=== PATIENT | female | born 2000 | race Caucasian/White ===

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

== ENCOUNTER → 2021-06-15 | Outpatient (CLI) | payer BC ==
[2021-06-15 10:24] VITALS: BP 117/77; PULSE 72; RESP 12; TEMP 98.2
--- NOTE | 2021-06-15 11:31 | P.HPOB ---
History of Present Illness H&P Date: 06/15/21 Chief Complaint: The patient is here for routine gynecologic care. This is a 20-year-old G0 with an LMP of 06/01/2021. The patient is here to establish with this office. She has never been seen for gynecologic care. She presents today with her mother. The patient states she has never been sexually active and does not plan on becoming sexually active in the immediate future. Menarche was at age 14. Menstrual periods have been regular since then. Since about age 17, she states the menstrual periods have become more painful especially during the last 2 days of her menses. The menstrual discomfort is in the mid pelvic area and not on any particular side. Menstrual periods typically last 4 days with normal flow. She typically takes [id number] ibuprofen 200 mg, 2 or 3 tablets, 3 times a day as needed. She says she has adequate relief with [id number] ibuprofen. Last year, she presented to the emergency room because of some pain and at that time she was told she had a kidney stone and an ovarian cyst. The pain resolved. Review of Systems The patient states she intentionally lost about 20 pounds since March with diet and exercise. She denies respiratory, cardiac, or GI problems. Past Medical History Past Medical History: No Reported History Additional Past Medical History / Comment(s): Kidney stones. 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 History of Any Multi-Drug Resistant Organisms: None Reported Additional Past Surgical History / Comment(s): [place] teeth removed in the past. Past Anesthesia/Blood Transfusion Reactions: No Reported Reaction Past Psychological History: No Psychological Hx Reported Smoking Status: Never smoker Past Alcohol Use History: None Reported Past Drug Use History: None Reported Additional History: The patient is single and is not seeing anybody at this time. 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 - Past Family History Mother Family Medical History: No Reported History Father Family Medical History: No Reported History Additional Family Medical History / Comment(s): Paternal grandmother had breast cancer. Paternal aunt had PCOS. Medications and Allergies Home Medications Medication Instructions Recorded Confirmed Type Ibuprofen 200 mg PO Q8H PRN 06/15/21 06/15/21 History Allergies Allergy/AdvReac Type Severity Reaction Status Date / Time No Known Allergies Allergy Verified 06/17/20 09:42 Exam Vital Signs Temp Pulse Resp BP 06/15/21 10:14 98.2 F 72 12 117/77 Height 5 feet 5 inches, weight 215 pounds, BMI 36 This is a well-developed well-nourished white female who is alert and oriented times 3 in no acute distress. HEENT: Within normal limits. NECK: Supple without mass or thyromegaly. CHEST AND LUNGS: Clear to auscultation. HEART: Regular rate and rhythm. BREASTS: Deferred. BACK: Negative for CVA tenderness. ABDOMEN: Soft, nontender, without palpable masses. PELVIC EXAM: Deferred. RECTAL EXAM: Deferred. EXTREMITIES: Nontender. IMPRESSION: 1. 20-year-old virginal female with normal general examination. Pelvic and breast exams were deferred. 2. Mild dysmenorrhea improved with ziia-fiw-vzmjvdh ibuprofen. PLAN: 1. Pap smear was deferred until age 22. 2. Pelvic exam will be deferred until age 22, or if sexually active, or if indicated due to symptoms. 3. Self breast awareness was discussed with the patient. We have also discussed symptoms associated with inflammatory breast cancer. 4. STD prevention was discussed. I have stressed the importance of limiting sexual partners during her lifetime. Have also recommended that if she is sexually active that she use condoms. She has no plan on becoming sexually active in the immediate future. 5. Osteoporosis prevention was discussed. I have stressed the importance of adequate calcium, vitamin D and regular exercise. Recommended amounts of calcium and vitamin D were also discussed. 6. We have had long discussion regarding her painful menstrual periods. We have discussed options including NSAID medications and oral contraception to help with the menstrual periods. She thinks she is doing well with NSAID treatment only. She would like a prescription NSAID which would allow her to take fewer pills. The prescription for ibuprofen 600 mg by mouth every 6 hours when necessary for menstrual pain will be sent to [facility] in [facility]. She was instructed to call or make an appointment if she is having worsening menstrual pains or problems. 7. She will call or make an appointment if she is considering sexual activity so we can further discuss control options, if needed. 8. We have discussed the HPV vaccination. We have discussed benefits and limitations of the vaccination. I have recommended that she look into having this vaccination which can be done through the health department, [facility], or her PCP. 9. She has completed her Covid vaccination series. 10. She will return at age 22, or as needed. She will also return if she is having worsening menstrual periods symptoms or if she is sexually active or considering sexual activity.
== END ==
LOC: WWCWWP 10:03
PROVIDERS: ATTEND Obstetrics & Gynecology
DX: N94.6 Dysmenorrhea, unspecified (principal)

== ENCOUNTER 2023-03-20 10:20 | Emergency (ER) | payer BC ==
[2023-03-20 10:25] VITALS: TEMP 98.1
[2023-03-20] MEDS ORDERED: FAMOTIDINE 20 MG/2 ML VIAL IV STA (10:35)
[2023-03-20] MEDS ORDERED: MAG HYDROX/AL HYDROX/SIMETH 30 ML, HYOSCYAMINE ELIXIR 10 ML, LIDOCAINE 2% GLYDO JELLY 1... PO STA ×3 (10:35)
--- NOTE | 2023-03-20 10:42 | ED ---
Chest Pain HPI - General Chief Complaint: Chest Pain Stated Complaint: Chest pain Time Seen by Provider: 03/20/23 10:26 Source: patient, RN notes reviewed Mode of arrival: ambulatory Limitations: no limitations - History of Present Illness Initial Comments: This is a 22-year-old female who presents to the emergency department for chest pain. Describes this as a burning sensation in the chest that started about 3 hours ago, around 7 AM. She tried taking Mylanta and Tums with no relief. She's had intermittent episodes of acid reflux before, however it has never been this severe. She took her Zoloft this morning with a couple of sips of water, but has otherwise not had anything to eat or drink today. Denies any shortness of breath, nausea, vomiting, or pain in the abdomen itself. Denies any fevers, chills, cough, dyspnea, palpitations, abdominal pain, nausea, vomiting, diarrhea, back pain, or headaches. - Related Data Home Medications Medication Instructions Recorded Confirmed Sertraline [Zoloft] 50 mg PO DAILY 03/20/23 03/20/23 Previous Rx's Medication Instructions Recorded Ibuprofen 600 mg PO Q6H PRN #36 tab 06/15/21 Famotidine 20 mg PO BID 7 Days #14 tablet 03/20/23 Sucralfate [Carafate] 1 gm PO BID 7 Days #14 tablet 03/20/23 Allergies Allergy/AdvReac Type Severity Reaction Status Date / Time No Known Allergies Allergy Verified 03/20/23 11:32 Review of Systems ROS Statement: Those systems with pertinent positive or pertinent negative responses have been documented in the HPI. ROS Other: All systems not noted in ROS Statement are negative. Past Medical History Past Medical History: No Reported History Additional Past Medical History / Comment(s): Kidney stones. 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 History of Any Multi-Drug Resistant Organisms: None Reported Past Surgical History: No Surgical Hx Reported Additional Past Surgical History / Comment(s): [place] teeth removed in the past. Past Anesthesia/Blood Transfusion Reactions: No Reported Reaction Past Psychological History: No Psychological Hx Reported Smoking Status: Never smoker Past Alcohol Use History: None Reported Past Drug Use History: None Reported - Past Family History Mother Family Medical History: No Reported History Father Family Medical History: No Reported History Additional Family Medical History / Comment(s): Paternal grandmother had breast cancer. Paternal aunt had PCOS. General Exam Limitations: no limitations General appearance: alert, in no apparent distress Head exam: Present: atraumatic, normocephalic, normal inspection Respiratory exam: Present: normal lung sounds bilaterally. Absent: respiratory distress, wheezes, rales, rhonchi, stridor, chest wall tenderness Cardiovascular Exam: Present: regular rate, normal rhythm, normal heart sounds. Absent: systolic murmur, diastolic murmur, rubs, gallop, clicks GI/Abdominal exam: Present: soft, normal bowel sounds. Absent: distended, tenderness, guarding, rebound, rigid Neurological exam: Present: alert, oriented X3, CN II-XII intact Psychiatric exam: Present: normal affect, normal mood Skin exam: Present: warm, dry, intact, normal color. Absent: rash Course Vital Signs 03/20/23 03/20/23 03/20/23 10:21 11:48 13:40 Temperature 98.1 F Pulse Rate 76 59 L 75 Respiratory 18 20 20 Rate Blood Pressure 145/83 139/85 140/60 O2 Sat by Pulse 98 98 998 H Oximetry Chest Pain MDM - MDM This is a 22-year-old female who presents to the emergency department for chest pain. Was pt. sent in by a medical professional or institution? @ -No Did you speak to anyone other than the patient for history? @ -No Did you review nursing and triage notes? @ -Yes, and I agree, it is accurate with regards to the patient's symptoms. Were old charts reviewed? @ -No Differential Diagnosis? @ -Differential Chest Pain: Stable Angina, Unstable Angina, STEMI, NSTEMI Aortic Dissection, Pneumothorax, Musculoskeletal, Esophageal Spasm GERD, Cholecystitis, Pancreatitis, Zoster, this is not meant to be an all-inclusive list. EKG interpreted by me (3pts min.)? @ -EKG interpreted by me demonstrating the following: Sinus rhythm. Ventricular rate 73 beats per minute, AK interval 136 ms, QRS duration 98 ms, QTC 381 ms. X-rays interpreted by me (1pt min.)? @ -Chest x-ray obtained, my interpretation identifies no localized consolidations or infiltrates. CT interpreted by me (1pt min.)? @ -Not obtained U/S interpreted by me (1pt. min.)? @ -Not obtained What testing was considered but not performed? (CT, X-rays, U/S, labs)? Why? @ -None What meds were considered but not given? Why? @ -None Did you discuss the management of the patient with other professionals? @ -No Did you reconcile home meds? @ -No Was smoking cessation discussed for >3mins.? @ -No Was critical care preformed (if so, how long)? @ -No Were there social determinants of health that impacted care today? How? (Homelessness, low income, unemployed, alcoholism, drug addiction, transportation, low edu. Level, literacy, decrease access to med. care, penitentiary, rehab)? @ -No Was there de-escalation of care discussed even if they declined? (Discuss DNR or withdrawal of care, Hospice)? @ -No What co-morbidities impacted this encounter? (DM, HTN, Smoking, COPD, CAD, Cancer, CVA, Hep., AIDS, mental health diagnosis, sleep apnea, morbid obesity)? @ -Morbid obesity Was patient admitted / discharged? @ -Discharged. Lab work obtained and found to be nonactionable. Chest x-ray reveals no acute process. Patient initially treated with a GI cocktail and Pepcid. States that this offered only minimal relief to her symptoms. She was subsequently given pantoprazole and sucralfate. She then started to have much more consistent improvement and while the pain was still present, she felt like it was much more manageable. Symptoms most consistent with a gastritis or peptic ulcer. Prescription for famotidine and sucralfate provided with dosing instructions reviewed. She was also given information for follow-up with GI for further evaluation. Undiagnosed new problem with uncertain prognosis? @ -None Drug Therapy requiring intensive monitoring for toxicity (Heparin, Nitro, Insulin, Cardizem)? @ -None Were any procedures done? @ -None Diagnosis/symptom? @ -Gastritis Acute, or Chronic, or Acute on Chronic? @ -Acute Uncomplicated (without systemic symptoms) or Complicated (systemic symptoms)? @ -Uncomplicated Side effects of treatment? @ -None Exacerbation, Progression, or Severe Exacerbation] @ -Not applicable Poses a threat to life or bodily function? @ -No Return precautions reviewed in depth, the patient is instructed to return to the emergency department with any new, worsening, or concerning symptoms. Patient verbalized understanding. This case was discussed in detail with the attending ED physician, Dr. Page. Presentation, findings, and treatment plan discussed in detail as well. Disposition Clinical Impression: Gastritis Disposition: HOME SELF-CARE Instructions (If sedation given, give patient instructions): Gastritis (ED) Additional Instructions: Return to the emergency department with any new, worsening, or concerning symptoms. Take the famotidine and Carafate twice daily for 7 days. Contact GI as listed below for a follow-up appointment and further evaluation of your ongoing symptoms. Follow up with your primary care provider in 1-2 days. Prescriptions: Sucralfate [Carafate] 1 gm PO BID 7 Days #14 tablet Famotidine 20 mg PO BID 7 Days #14 tablet Is patient prescribed a controlled substance at d/c from ED?: No Referrals: Akin Payne DO [Primary Care Provider] - 1-2 days Carly Nguyen MD [STAFF PHYSICIAN] - 1-2 days
[2023-03-20 10:59] LABS: Basophils % (A) 0 %; Eosinophils # (A) 0.1 k/uL (0-0.7); Eosinophils % (A) 2 %; HCT 39.4 % (34.0-46.0); HGB 12.8 gm/dL (11.4-16.0); Lymphocytes # (A) 2.6 k/uL (1.0-4.8); Lymphocytes % (A) 30 %; MCH 26.1 pg (25.0-35.0); MCHC 32.5 g/dL (31.0-37.0); MCV 80.2 fL (80.0-100.0); Mean Platelet Volume 7.8; Monocytes # (A) 0.4 k/uL (0-1.0); Monocytes % (A) 5 %; Neutrophils # (A) 5.6 k/uL (1.3-7.7); Neutrophils % (A) 62 %; Platelet Count 311 k/uL (150-450); RBC 4.91 m/uL (3.80-5.40); RDW 13.3 % (11.5-15.5); WBC 8.9 k/uL (3.8-10.6)
[2023-03-20 11:10] LABS: ALT 20 U/L (4-34); AST 21 U/L (14-36); African American GFR (CKD) >90 (>60 ml/min/1.73 sqM); Albumin 4.3 g/dL (3.5-5.0); Alkaline Phosphatase 85 U/L (38-126); Amylase 58 U/L (30-110); Anion Gap 9 mmol/L; Blood Urea Nitrogen 13 mg/dL (7-17); Calcium 9.6 mg/dL (8.4-10.2); Carbon Dioxide 22 mmol/L (22-30); Chloride 106 mmol/L (98-107); Glucose 107 mg/dL (74-99); Lipase 100 U/L (23-300); Non-African American GFR(CKD) >90 (>60 ml/min/1.73 sqM); Potassium 4.4 mmol/L (3.5-5.1); Sodium 137 mmol/L (137-145); Total Bilirubin 0.5 mg/dL (0.2-1.3); Total Protein 7.5 g/dL (6.3-8.2)
[2023-03-20] MEDS ORDERED: PANTOPRAZOLE 40 MG/10 ML VIAL IVP STA (11:19)
[2023-03-20] MEDS ORDERED: SUCRALFATE 1 GM TAB PO STA (11:19)
--- NOTE | 2023-03-20 11:24 | XR ---
EXAMINATION TYPE: XR chest 2V DATE OF EXAM: 03/20/2023 COMPARISON: NONE TECHNIQUE: PA and lateral views submitted. HISTORY: Chest pain FINDINGS: The lungs are clear and there is no pneumothorax, pleural effusion, or focal pneumonia. Heart size normal and no overt failure. Osseous structures intact. IMPRESSION: 1. No acute process.
[2023-03-20 11:49] VITALS: RESP 20
[2023-03-20 13:44] VITALS: BP 140/60; PULSE 75
== END 2023-03-20 13:44 | disposition home or self-care (01) ==
LOC: EC 10:20
DX: K29.70 Gastritis, unspecified, without bleeding (principal)
CPT/HCPCS: 36415; 93005; 80053; 82150; 83605; 83690; 84484; 85025; 71046; 99285; 96374; 96375; C9113

== ENCOUNTER 2023-06-10 10:16 | Emergency (ER) | payer BC, OTHER ==
[2023-06-10 10:23] VITALS: RESP 18
[2023-06-10] MEDS ORDERED: SODIUM CHLORIDE 0.9% 1,000 ML IV STA (10:33)
[2023-06-10] MEDS ORDERED: KETOROLAC 15 MG/ML 1 ML VIAL IVP STA ×2 (10:33→12:57)
[2023-06-10] MEDS ORDERED: ONDANSETRON 4 MG/2 ML VIAL IVP STA (10:33)
--- NOTE | 2023-06-10 10:49 | ED ---
Abdominal Pain HPI - General Chief Complaint: Abdominal Pain Stated Complaint: Abd Pain Time Seen by Provider: 06/10/23 10:19 Source: patient, RN notes reviewed Mode of arrival: wheelchair Limitations: no limitations - History of Present Illness Initial Comments: This is a 22-year-old female who presents to the emergency department for left- sided abdominal pain. 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 This is not radiating to the back. Reports a history of ovarian cysts and kidney stones, and states that it feels similar to both of them. However, believes that ovarian cysts typically occur lower down in her abdomen/pelvis and this one is closer to that of prior kidney stones. She has nausea from the pain but no vomiting. Denies any urinary complaints. Denies any fevers, chills, sore throat, cough, dyspnea, chest pain, palpitations, vomiting, diarrhea, back pain, or headaches. MD Complaint: abdominal pain - Related Data Home Medications Medication Instructions Recorded Confirmed Sertraline [Zoloft] 50 mg PO DAILY 03/20/23 03/20/23 Previous Rx's Medication Instructions Recorded Ibuprofen 600 mg PO Q6H PRN #36 tab 06/15/21 Famotidine 20 mg PO BID 7 Days #14 tablet 03/20/23 Sucralfate [Carafate] 1 gm PO BID 7 Days #14 tablet 03/20/23 HYDROcodone/APAP 7.5-325MG [Campbell 1 tab PO Q6HR PRN 3 Days #12 tab 06/10/23 7.5-325] Ketorolac [Toradol] 10 mg PO Q6HR PRN #15 tab 06/10/23 Ondansetron Odt [Zofran Odt] 4 mg PO Q8HR PRN #15 tab 06/10/23 Tamsulosin [Flomax] 0.4 mg PO DAILY 5 Days #5 cap 06/10/23 Allergies Allergy/AdvReac Type Severity Reaction Status Date / Time No Known Allergies Allergy Verified 06/10/23 10:19 Review of Systems ROS Statement: Those systems with pertinent positive or pertinent negative responses have been documented in the HPI. ROS Other: All systems not noted in ROS Statement are negative. Past Medical History Past Medical History: No Reported History Additional Past Medical History / Comment(s): Kidney stones. Past [employer] history: She has never been sexually active. History of Any Multi-Drug Resistant Organisms: None Reported Past Surgical History: No Surgical Hx Reported Additional Past Surgical History / Comment(s): [place] teeth removed in the past. Past Anesthesia/Blood Transfusion Reactions: No Reported Reaction Past Psychological History: No Psychological Hx Reported Smoking Status: Never smoker Past Alcohol Use History: None Reported Past Drug Use History: None Reported - Past Family History Mother Family Medical History: No Reported History Father Family Medical History: No Reported History Additional Family Medical History / Comment(s): Paternal grandmother had breast cancer. Paternal aunt had PCOS. General Exam Limitations: no limitations General appearance: alert, in no apparent distress Head exam: Present: atraumatic, normocephalic, normal inspection Respiratory exam: Present: normal lung sounds bilaterally. Absent: respiratory distress, wheezes, rales, rhonchi, stridor Cardiovascular Exam: Present: regular rate, normal rhythm, normal heart sounds. Absent: systolic murmur, diastolic murmur, rubs, gallop, clicks GI/Abdominal exam: Present: soft, tenderness (left mid abdomen), normal bowel sounds. Absent: distended Back exam: Absent: CVA tenderness (R), CVA tenderness (L) Neurological exam: Present: alert, oriented X3, CN II-XII intact Psychiatric exam: Present: normal affect, normal mood Skin exam: Present: warm, dry, intact, normal color. Absent: rash Course Vital Signs 06/10/23 06/10/23 10:17 13:23 Temperature 98 F 97.9 F Pulse Rate 102 H 55 L Respiratory 18 18 Rate Blood Pressure 146/81 123/87 O2 Sat by Pulse 98 99 Oximetry Medical Decision Making - Medical Decision Making This is a 22-year-old female who presents to the emergency department for abdominal pain. Was pt. sent in by a medical professional or institution? @ -No Did you speak to anyone other than the patient for history? @ -No Did you review nursing and triage notes? @ -Yes, and I agree, it is accurate with regards to the patient's symptoms. Were old charts reviewed? @ -No Differential Diagnosis? @ -Differential Abdominal Pain Women: Appendicitis, Cholecystitis, diverticulosis, ischemic bowel, pancreatitis, hepatitis, UTI, gastroenteritis, AAA, incarcerated hernia, bowel obstruction, constipation, inflammatory bowel, hepatitis, peptic ulcer disease, splenic infarction, perforated viscus, vulvitis, ovarian torsion, PID, kidney stone, placenta abruption, this is not meant to be an all-inclusive list EKG interpreted by me (3pts min.)? @ -Not obtained X-rays interpreted by me (1pt min.)? @ -Not obtained CT interpreted by me (1pt min.)? @ -Computed tomography scan of the abdomen and pelvis obtained. My interpretation identifies a left ureteral calculus. U/S interpreted by me (1pt. min.)? @ -Not obtained What testing was considered but not performed? (CT, X-rays, U/S, labs)? Why? @ -None What meds were considered but not given? Why? @ -None Did you discuss the management of the patient with other professionals? @ -No Did you reconcile home meds? @ -No Was smoking cessation discussed for >3mins.? @ -No Was critical care preformed (if so, how long)? @ -No Were there social determinants of health that impacted care today? How? (Homelessness, low income, unemployed, alcoholism, drug addiction, transportation, low edu. Level, literacy, decrease access to med. care, prison, rehab)? @ -No Was there de-escalation of care discussed even if they declined? (Discuss DNR or withdrawal of care, Hospice)? @ -No What co-morbidities impacted this encounter? (DM, HTN, Smoking, COPD, CAD, Cancer, CVA, Hep., AIDS, mental health diagnosis, sleep apnea, morbid obesity)? @ -None Was patient admitted / discharged? @ -Discharged. Lab work obtained and found to be nonactionable. Urinalysis did have large amount of blood in it, and we proceeded with a computed cipriano ography scan of the abdomen and pelvis. This revealed a 3 mm calculus in the left UVJ. Her symptoms were well controlled in the emergency department. She was given prescriptions for Toradol, Campbell, Flomax, and Zofran with dosing instructions reviewed. Patient is instructed to take the Toradol with Tylenol if needed and avoid any other hrop-[id number] anti-inflammatories such as ibuprofen with the Toradol. She was sent home with a urine strainer and given information to follow up with urology. Undiagnosed new problem with uncertain prognosis? @ -None Drug Therapy requiring intensive monitoring for toxicity (Heparin, Nitro, Insulin, Cardizem)? @ -None Were any procedures done? @ -None Diagnosis/symptom? @ -Left ureteral calculus Acute, or Chronic, or Acute on Chronic? @ -Acute Uncomplicated (without systemic symptoms) or Complicated (systemic symptoms)? @ -Uncomplicated Side effects of treatment? @ -None Exacerbation, Progression, or Severe Exacerbation] @ -Not applicable Poses a threat to life or bodily function? @ -No Return precautions reviewed in depth, the patient is instructed to return to the emergency department with any new, worsening, or concerning symptoms. Patient verbalized understanding. This case was discussed in detail with the attending ED physician, Dr. Momin. Presentation, findings, and treatment plan discussed in detail as well. - Lab Data Result diagrams: 06/10/23 10:46 06/10/23 10:46 Lab Results 06/10/23 06/10/23 06/10/23 Range/Units 10:46 10:46 10:46 WBC 9.0 (3.8-10.6) k/uL RBC 4.71 (3.80-5.40) m/uL Hgb 12.3 (11.4-16.0) gm/dL Hct 37.7 (34.0-46.0) % MCV 80.1 (80.0-100.0) fL MCH 26.2 (25.0-35.0) pg MCHC 32.7 (31.0-37.0) g/dL RDW 13.5 (11.5-15.5) % Plt Count 346 (150-450) k/uL MPV 7.6 Neutrophils % 67 % Lymphocytes % 26 % Monocytes % 5 % Eosinophils % 1 % Basophils % 0 % Neutrophils # 6.0 (1.3-7.7) k/uL Lymphocytes # 2.3 (1.0-4.8) k/uL Monocytes # 0.4 (0-1.0) k/uL Eosinophils # 0.1 (0-0.7) k/uL Basophils # 0.0 (0-0.2) k/uL Sodium (137-145) mmol/L Potassium (3.5-5.1) mmol/L Chloride (98-107) mmol/L Carbon Dioxide (22-30) mmol/L Anion Gap mmol/L BUN (7-17) mg/dL Creatinine (0.52-1.04) mg/dL Est GFR (CKD-EPI)AfAm (>60 ml/min/1.73 sqM) Est GFR (CKD-EPI)NonAf (>60 ml/min/1.73 sqM) Glucose (74-99) mg/dL Plasma Lactic Acid Wilder (0.7-2.0) mmol/L Calcium (8.4-10.2) mg/dL Total Bilirubin (0.2-1.3) mg/dL AST (14-36) U/L ALT (4-34) U/L Alkaline Phosphatase (38-126) U/L Total Protein (6.3-8.2) g/dL Albumin (3.5-5.0) g/dL Amylase (30-110) U/L Lipase (23-300) U/L Urine Color Yellow Urine Appearance Cloudy H (Clear) Urine pH 5.5 (5.0-8.0) Ur Specific [place] 1.025 (1.001-1.035) Urine Protein Trace H (Negative) Urine Glucose (UA) Negative (Negative) Urine Ketones 1+ H (Negative) Urine Blood Large H (Negative) Urine Nitrite Negative (Negative) Urine Bilirubin Negative (Negative) Urine Urobilinogen <2.0 (<2.0) mg/dL Ur Leukocyte Esterase Trace H (Negative) Urine RBC 159 H (0-5) /hpf Urine WBC 4 (0-5) /hpf Ur Squamous Epith Cells 8 H (0-4) /hpf Urine Bacteria Occasional H (None) /hpf Urine Mucus Few H (None) /hpf Urine HCG, Qual Not Detected (Not Detectd) 06/10/23 06/10/23 Range/Units 10:46 10:46 WBC (3.8-10.6) k/uL RBC (3.80-5.40) m/uL Hgb (11.4-16.0) gm/dL Hct (34.0-46.0) % MCV (80.0-100.0) fL MCH (25.0-35.0) pg MCHC (31.0-37.0) g/dL RDW (11.5-15.5) % Plt Count (150-450) k/uL MPV Neutrophils % % Lymphocytes % % Monocytes % % Eosinophils % % Basophils % % Neutrophils # (1.3-7.7) k/uL Lymphocytes # (1.0-4.8) k/uL Monocytes # (0-1.0) k/uL Eosinophils # (0-0.7) k/uL Basophils # (0-0.2) k/uL Sodium 140 (137-145) mmol/L Potassium 4.1 (3.5-5.1) mmol/L Chloride 105 (98-107) mmol/L Carbon Dioxide 23 (22-30) mmol/L Anion Gap 12 mmol/L BUN 14 (7-17) mg/dL Creatinine 0.75 (0.52-1.04) mg/dL Est GFR (CKD-EPI)AfAm >90 (>60 ml/min/1.73 sqM) Est GFR (CKD-EPI)NonAf >90 (>60 ml/min/1.73 sqM) Glucose 104 H (74-99) mg/dL Plasma Lactic Acid Wilder 1.3 (0.7-2.0) mmol/L Calcium 9.9 (8.4-10.2) mg/dL Total Bilirubin 0.5 (0.2-1.3) mg/dL AST 23 (14-36) U/L ALT 23 (4-34) U/L Alkaline Phosphatase 90 (38-126) U/L Total Protein 7.8 (6.3-8.2) g/dL Albumin 4.6 (3.5-5.0) g/dL Amylase 57 (30-110) U/L Lipase 82 (23-300) U/L Urine Color Urine Appearance (Clear) Urine pH (5.0-8.0) Ur Specific [place] (1.001-1.035) Urine Protein (Negative) Urine Glucose (UA) (Negative) Urine Ketones (Negative) Urine Blood (Negative) Urine Nitrite (Negative) Urine Bilirubin (Negative) Urine Urobilinogen (<2.0) mg/dL Ur Leukocyte Esterase (Negative) Urine RBC (0-5) /hpf Urine WBC (0-5) /hpf Ur Squamous Epith Cells (0-4) /hpf Urine Bacteria (None) /hpf Urine Mucus (None) /hpf Urine HCG, Qual (Not Detectd) - Radiology Data Radiology results: report reviewed, image reviewed Disposition Clinical Impression: Left ureteral calculus Disposition: HOME SELF-CARE Instructions (If sedation given, give patient instructions): Kidney Stones (ED), Renal Colic (ED), How to Strain Your Urine (ED), Ureteral Stones (ED) Additional Instructions: Return to the emergency department with any new, worsening, or concerning symptoms. Take the Toradol with Tylenol as needed for pain relief. If you choose to take the Toradol, do not take any other anti-inflammatories such as ibuprofen, take one of the other. Take the Flomax daily for 5 days, or until you pass the kidney stone. You can take the Zofran up to every 8 hours as needed for nausea and vomiting. Contact urology as listed below for a follow up appointment and reevaluation of ongoing symptoms. Follow up with your primary care provider in 1-2 days. Prescriptions: Tamsulosin [Flomax] 0.4 mg PO DAILY 5 Days #5 cap HYDROcodone/APAP 7.5-325MG [Campbell 7.5-325] 1 tab PO Q6HR PRN 3 Days #12 tab PRN Reason: Pain Ketorolac [Toradol] 10 mg PO Q6HR PRN #15 tab PRN Reason: Pain Ondansetron Odt [Zofran Odt] 4 mg PO Q8HR PRN #15 tab PRN Reason: Nausea And Vomiting Is patient prescribed a controlled substance at d/c from ED?: Yes When asked, does pt state using other controlled substances?: No If prescribed controlled substance>3 days was MAPS reviewed?: Prescribed <3 Days Referrals: Akin Payne DO [Primary Care Provider] - 1-2 days Franko Arroyo MD [STAFF PHYSICIAN] - 1-2 days
[2023-06-10] MEDS ORDERED: MORPHINE SULFATE 4 MG/ML SYRINGE IVP STA (11:16)
[2023-06-10 11:17] LABS: Basophils % (A) 0 %; Eosinophils # (A) 0.1 k/uL (0-0.7); Eosinophils % (A) 1 %; HCT 37.7 % (34.0-46.0); HGB 12.3 gm/dL (11.4-16.0); Lymphocytes # (A) 2.3 k/uL (1.0-4.8); Lymphocytes % (A) 26 %; MCH 26.2 pg (25.0-35.0); MCHC 32.7 g/dL (31.0-37.0); MCV 80.1 fL (80.0-100.0); Mean Platelet Volume 7.6; Monocytes # (A) 0.4 k/uL (0-1.0); Monocytes % (A) 5 %; Neutrophils % (A) 67 %; Platelet Count 346 k/uL (150-450); RBC 4.71 m/uL (3.80-5.40); RDW 13.5 % (11.5-15.5)
[2023-06-10 11:39] LABS: ALT 23 U/L (4-34); AST 23 U/L (14-36); African American GFR (CKD) >90 (>60 ml/min/1.73 sqM); Albumin 4.6 g/dL (3.5-5.0); Alkaline Phosphatase 90 U/L (38-126); Amylase 57 U/L (30-110); Anion Gap 12 mmol/L; Blood Urea Nitrogen 14 mg/dL (7-17); Calcium 9.9 mg/dL (8.4-10.2); Carbon Dioxide 23 mmol/L (22-30); Chloride 105 mmol/L (98-107); Glucose 104 mg/dL (74-99); Lipase 82 U/L (23-300); Non-African American GFR(CKD) >90 (>60 ml/min/1.73 sqM); Potassium 4.1 mmol/L (3.5-5.1); Sodium 140 mmol/L (137-145); Total Bilirubin 0.5 mg/dL (0.2-1.3); Total Protein 7.8 g/dL (6.3-8.2)
[2023-06-10 12:14] LABS: Appearance,Urine Cloudy (Clear); Bacteria,Urine Occasional /hpf; Bilirubin,Urine Negative (Negative); Blood,Urine Large (Negative); Color,Urine Yellow; Glucose,Urine (UA) Negative (Negative); Ketones,Urine 1+ (Negative); Leukocyte Esterase,Urine Trace (Negative); Mucus,Urine Few /hpf; Nitrite,Urine Negative (Negative); PH, Urine 5.5 (5.0-8.0); Protein,Urine Trace (Negative); RBC,Urine 159 /hpf (0-5); Specific Gravity,Urine 1.025 (1.001-1.035); Squamous Epithelial Cell,Urine 8 /hpf (0-4); Urobilinogen,Urine <2.0 mg/dL (<2.0); WBC,Urine 4 /hpf (0-5)
--- NOTE | 2023-06-10 12:48 | CT ---
EXAMINATION TYPE: CT abdomen pelvis w con CT DLP: 1524.3 mGycm, Automated exposure control for dose reduction was used. DATE OF EXAM: 06/10/2023 12:37 PM COMPARISON: CT abdomen pelvis most recent from 10/18/2019 CLINICAL INDICATION:Female, 22 years old with history of LLQ abdominal pain; LLQ pain TECHNIQUE: Axial CT of the abdomen and pelvis. Sagittal and coronal reformats were created on a [employer] workstation. Contrast used:100 mL of Isovue 300 with IV Contrast, (none if empty) Oral contrast used: without Oral Contrast (none if empty) FINDINGS: LOWER CHEST: Unremarkable ABDOMEN LIVER: Unremarkable GALLBLADDER AND BILE DUCTS: Unremarkable. PANCREAS: Unremarkable. SPLEEN: Unremarkable. ADRENAL GLANDS: Unremarkable. KIDNEYS AND URETERS: 3 mm left ureterovesicular junction calculus without significant hydronephrosis. Bilateral nonobstructing calculi measuring up to 4 mm. No right hydronephrosis. PELVIS BLADDER: Unremarkable REPRODUCTIVE: Unremarkable. ABDOMEN & PELVIS STOMACH AND BOWEL: No evidence of bowel obstruction. Moderate to large amount stool within the colon. PERITONEUM/RETROPERITONEUM: No evidence of pneumoperitoneum or free fluid. VASCULATURE: No evidence of aortic aneurysm. MUSCULOSKELETAL: No acute osseous abnormalities LYMPH NODES: No gross evidence for lymphadenopathy. SOFT TISSUE/ABDOMINAL WALL: Fat-containing umbilical hernia. IMPRESSION: 1. Left ureterovesicular junction 3 mm calculus without significant hydronephrosis 2. Moderate to large stool burden.
[2023-06-10 13:25] VITALS: BP 123/87; PULSE 55; TEMP 97.9
== END 2023-06-10 13:25 | disposition home or self-care (01) ==
LOC: EC 10:16
DX: N20.1 Calculus of ureter (principal)
CPT/HCPCS: 36415; 80053; 82150; 83605; 83690; 85025; 81001; 81025; 74177; 99284; 96374; 96375 ×2; 96376; 96361 ×2; J2270; J2405; J1885; Q9967

== ENCOUNTER 2024-10-05 01:23 | Emergency (ER) | payer MEDICAID, OTHER ==
[2024-10-05 01:29] VITALS: TEMP 98.4
[2024-10-05] MEDS: ACETAMINOPHEN TAB 500 MG TAB PO STA (01:45)
--- NOTE | 2024-10-05 01:51 | ED ---
General Adult HPI - General Chief complaint: Abdominal Pain Stated complaint: ABD Pain Time Seen by Provider: 10/05/24 01:30 Source: patient Mode of arrival: ambulatory Limitations: no limitations - History of Present Illness Initial comments: Patient is a pleasant 23-year-old female with no significant medical history presenting today for sharp left lower quadrant pain. Patient states that at 1 PM yesterday afternoon she was at [employer] when she began experiencing sharp lower quadrant pain. This resolved spontaneously however about an hour prior to arrival in the ED she again began experiencing sharp, 7 out of 10 left lower quadrant pain. 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 Did not begin while lifting patients or heavy objects. It does not radiate to her left flank. She denies nausea, vomiting, diarrhea, black or bloody stools, constipation, fevers, chills, chest pain, shortness of breath, vaginal bleeding or discharge, dysuria, hematuria or urinary frequency. States that she has been seen before for a ruptured ovarian cyst as well as has a history of kidney stones. She states this does not feel like prior kidney stones and is concerned that this may be secondary to ovarian pathology. Isaac naidu does have an IUD in place and the first day of her last menstrual period was 09/07/2023. No pain medications prior to arrival. - Related Data Home Medications Medication Instructions Recorded Confirmed Sertraline [Zoloft] 50 mg PO DAILY 03/20/23 03/20/23 Previous Rx's Medication Instructions Recorded Ibuprofen 600 mg PO Q6H PRN #36 tab 06/15/21 Famotidine 20 mg PO BID 7 Days #14 tablet 03/20/23 Sucralfate [Carafate] 1 gm PO BID 7 Days #14 tablet 03/20/23 HYDROcodone/APAP 7.5-325MG [[place] 1 tab PO Q6HR PRN 3 Days #12 tab 06/10/23 7.5-325] Ketorolac [Toradol] 10 mg PO Q6HR PRN #15 tab 06/10/23 Ondansetron Odt [Zofran Odt] 4 mg PO Q8HR PRN #15 tab 06/10/23 Tamsulosin [Flomax] 0.4 mg PO DAILY 5 Days #5 cap 06/10/23 Allergies Allergy/AdvReac Type Severity Reaction Status Date / Time No Known Allergies Allergy Verified 10/05/24 01:29 Review of Systems ROS Statement: Those systems with pertinent positive or pertinent negative responses have been documented in the HPI. ROS Other: All systems not noted in ROS Statement are negative. Past Medical History Past Medical History: No Reported History Additional Past Medical History / Comment(s): Kidney stones. 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 History of Any Multi-Drug Resistant Organisms: None Reported Past Surgical History: No Surgical Hx Reported Additional Past Surgical History / Comment(s): [place] teeth removed in the past. Past Anesthesia/Blood Transfusion Reactions: No Reported Reaction Past Psychological History: Anxiety Smoking Status: Never smoker Past Alcohol Use History: None Reported Past Drug Use History: None Reported - Past Family History Mother Family Medical History: No Reported History Father Family Medical History: No Reported History Additional Family Medical History / Comment(s): Paternal grandmother had breast cancer. Paternal aunt had PCOS. General Exam - General Exam Comments Initial Comments: PE: CONSTITUTIONAL: No apparent distress, well appearing SKIN: Warm, dry, no jaundice, hives or petechiae EYES: Pupils are equally round, extraocular movements intact without nystagmus, clear conjunctiva, non-icteric sclera HENT: Normocephalic, atraumatic, moist mucus membranes, oropharynx clear without exudates NECK: , Full range of motion, normal appearance PULMONARY: Clear to auscultation without wheezes, rhonchi, or rales, normal excursion, no accessory muscle use and no stridor CARDIOVASCULAR: Regular rate, rhythm, normal S1 and S2. No appreciated murmurs, rubs or gallops. Strong radial pulses with intact distal perfusion. GASTROINTESTINAL: Soft, active bowel sounds throughout, tenderness palpation of the left lower quadrant with guarding non-distended, no palpable masses, no reboundNo hepatosplenomegaly GENITOURINARY: MUSCULOSKELETAL: Extremities have no gross deformity NEUROLOGIC:_a/o x 3, GCS 15, normal mentation and speech. Moves all extremities x 4 without motor or sensory deficit PSYCHIATRIC:_normal mood and affect, thought process is clear and linear Limitations: no limitations Course Vital Signs 10/05/24 10/05/24 10/05/24 01:26 02:37 03:59 Temperature 98.4 F Pulse Rate 74 80 80 Respiratory 16 16 18 Rate Blood Pressure 150/74 114/66 O2 Sat by Pulse 98 98 Oximetry Medical Decision Making - Medical Decision Making Was pt. sent in by a medical professional or institution (, PA, FINANCIAL MANAGER, urgent care, hospital, or jail...) When possible be specific @ -[No] Did you speak to anyone other than the patient for history (EMS, parent, family, police, friend...)? What history was obtained from this source @ -[No] Did you review nursing and triage notes (agree or disagree)? Why? @ -[I reviewed nursing and triage notes] Were old charts reviewed (outside hosp., previous admission, EMS record, old EKG, old radiological studies, urgent care reports/EKG's, jail records)? Report findings @ -[Medical records reviewed]Left abdominal imaging available for review is done on 06/10/2023 and showed a left UVJ 3 mm calculus without significant hydro and a marked right to large stool burden Differential Diagnosis (chest pain, altered mental status, abdominal pain women, abdominal pain men, vaginal bleeding, weakness, fever, dyspnea, syncope, headache, dizziness, GI bleed, back pain, seizure, CVA, palpatations, mental health, musculoskeletal)? @Differential Abdominal Pain Women: Appendicitis, Cholecystitis, diverticulitis ischemic bowel, pancreatitis, hepatitis, UTI, bowel obstruction, constipation, inflammatory bowel. Ruptured ovarian cyst ovarian torsion, PID, kidney stone, ectopic this is not meant to be an all-inclusive list Based on patient's abdominal exam a very low suspicion for appendicitis or cholecystitis at this time due to point tenderness in the left lower quadrant and no constipation the right lower quadrant, for this reason I do not feel CT imaging indicated at this point and will obtain ultrasound of the kidneys and pelvis. EKG interpreted by me (3pts min.). @ -[As above] X-rays interpreted by me (1pt min.). @ -[None done] CT interpreted by me (1pt min.). @ -[None done] U/S interpreted by me (1pt. min.). @ -I personally reviewed patient's ultrasound, I see a large left ovarian cyst otherwise there is blood flow present to both ovaries no other acute process noted What testing was considered but not performed or refused? (CT, X-rays, U/S, labs)? Why? @ -[None] What meds were considered but not given or refused? Why? @ -[None] Did you discuss the management of the patient with other professionals (prof ross i.e. , PA, FINANCIAL MANAGER, lab, RT, psych nurse, psychotherapist social worker, public aid eligibility assistant, teacher, highway patrol officer, watch caser)? Give summary @ -[No] Was smoking cessation discussed for >3mins.? @ -[No] Was critical care preformed (if so, how long)? @ -[No] Were there social determinants of health that impacted care today? How? (Homelessness, low income, unemployed, alcoholism, drug addiction, transportation, low edu. Level, literacy, decrease access to med. care, fpc, rehab)? @ -[No] Was there de-escalation of care discussed even if they declined (Discuss DNR or withdrawal of care, Hospice)? @ -[No] What co-morbidities impacted this encounter? (DM, HTN, Smoking, COPD, CAD, Cancer, CVA, ARF, Chemo, Hep., AIDS, mental health diagnosis, sleep apnea, morbid obesity)? @ -[None] Was patient admitted / discharged? Hospital course, mention meds given and route, prescriptions, significant lab abnormalities, going to OR and other pertinent info. @ -[hospital course] patient is a pleasant 23-year-old female presenting today for sudden onset sharp left lower quadrant pain.Patient mildly hypertensive with blood pressure 150/74 otherwise vital signs within acceptable limits. Physical exam significant for guarding and tenderness palpation in the left lower quadrant of the abdomen, no CVA tenderness no right lower quadrant tenderness active bowel sounds no palpable masses. At the top of my differential is ovarian torsion versus ruptured ovarian cyst and for this reason we will obtain ultrasound of the pelvis, additionally obtain renal ultrasound to ensure no hydronephrosis. Basic labs will be obtained, patient given Tylenol for pain control patient agreeable with plan of care. Labs and imaging reviewed. Grossly within normal limits. Abnormal values not concerning for acute pathology related to presenting complaint. Ultrasound read as small left ovarian cyst, small amount of free fluid in the pelvis. Urinalysis without signs of infection. CBC and CMP overall reassuring. Negative lactic. Ultrasound of kidneys without acute process. On reassessment patient endorsed improvement of symptoms, she is comfortable appearing. Discussed with her today's findings and plan for discharge. We discussed sign symptoms worsen return emergency department patient was agreeable plan of care. In my medical judgment there is currently no evidence of an immediate life- threatening or surgical condition. Discharge is therefore indicated at this time. [Discharge treatment instructions, follow up instructions, and appropriate emergency department return precautions were discussed with the patient and/or medical decision maker. Patient and/or medical decision maker expressed understanding of and agreed with the treatment plan, follow up instructions, and emergency department return precaution. All patient's and/or medical decision maker's questions were answered.] [The patient was advised that a small risk still exists that a serious condition could develop and was therefore instructed to return to the ED for any changes in symptoms, persistent symptoms, inability to obtain proper follow-up or for any further concerns. Patient received verbal and written instructions for this condition.] Undiagnosed new problem with uncertain prognosis? @ -[No] Drug Therapy requiring intensive monitoring for toxicity (Heparin, Nitro, Insulin, Cardizem)? @ -[No] Were any procedures done? @ -[No] Diagnosis/symptom? Left lower quadrant pain Acute, or Chronic, or Acute on Chronic? Acute, ovarian cyst Uncomplicated (without systemic symptoms) or Complicated (systemic symptoms)? Uncomplicated Side effects of treatment? @ -[No] Exacerbation, Progression, or Severe Exacerbation? @ -[No] Poses a threat to life or bodily function? How? (Chest pain, [place], [place], pneumonia, PE, COPD, DKA, ARF, appy, cholecystitis, CVA, Diverticulitis, Homicidal, Suicidal, threat to staff... and all critical care pts) @ -[No] - Lab Data Result diagrams: 10/05/24 02:00 10/05/24 02:00 Lab Results 10/05/24 10/05/24 10/05/24 Range/Units 02:00 02:00 02:00 WBC 14.6 H (3.8-10.6) k/uL RBC 4.56 (3.80-5.40) m/uL Hgb 11.4 (11.4-16.0) gm/dL Hct 35.4 (34.0-46.0) % MCV 77.6 L (80.0-100.0) fL MCH 25.0 (25.0-35.0) pg MCHC 32.2 (31.0-37.0) g/dL RDW 14.1 (11.5-15.5) % Plt Count 396 (150-450) k/uL MPV 8.7 Neutrophils % 64 % Lymphocytes % 28 % Monocytes % 5 % Eosinophils % 1 % Basophils % 1 % Neutrophils # 9.4 H (1.3-7.7) k/uL Lymphocytes # 4.0 (1.0-4.8) k/uL Monocytes # 0.7 (0-1.0) k/uL Eosinophils # 0.2 (0-0.7) k/uL Basophils # 0.1 (0-0.2) k/uL PT 10.1 (10.0-12.5) sec INR 0.9 (<1.2) APTT 23.4 (22.0-30.0) sec Sodium 135 L (137-145) mmol/L Potassium 3.8 (3.5-5.1) mmol/L Chloride 101 (98-107) mmol/L Carbon Dioxide 24 (22-30) mmol/L Anion Gap 10 mmol/L BUN 12 (7-17) mg/dL Creatinine 0.71 (0.52-1.04) mg/dL Est GFR (CKD-EPI)AfAm >90 (>60 ml/min/1.73 sqM) Est GFR (CKD-EPI)NonAf >90 (>60 ml/min/1.73 sqM) Glucose 91 (74-99) mg/dL Plasma Lactic Acid Wilder (0.7-2.0) mmol/L Calcium 9.5 (8.4-10.2) mg/dL Total Bilirubin 0.4 (0.2-1.3) mg/dL AST 21 (14-36) U/L ALT 20 (4-34) U/L Alkaline Phosphatase 90 (38-126) U/L Total Protein 7.5 (6.3-8.2) g/dL Albumin 4.3 (3.5-5.0) g/dL Amylase 61 (30-110) U/L Lipase 155 (23-300) U/L Urine Color Urine Appearance (Clear) Urine pH (5.0-8.0) Ur Specific [place] (1.001-1.035) Urine Protein (Negative) Urine Glucose (UA) (Negative) Urine Ketones (Negative) Urine Blood (Negative) Urine Nitrite (Negative) Urine Bilirubin (Negative) Urine Urobilinogen (<2.0) mg/dL Ur Leukocyte Esterase (Negative) Urine HCG, Qual (Not Detectd) 10/05/24 10/05/24 10/05/24 Range/Units 02:00 02:19 02:19 WBC (3.8-10.6) k/uL RBC (3.80-5.40) m/uL Hgb (11.4-16.0) gm/dL Hct (34.0-46.0) % MCV (80.0-100.0) fL MCH (25.0-35.0) pg MCHC (31.0-37.0) g/dL RDW (11.5-15.5) % Plt Count (150-450) k/uL MPV Neutrophils % % Lymphocytes % % Monocytes % % Eosinophils % % Basophils % % Neutrophils # (1.3-7.7) k/uL Lymphocytes # (1.0-4.8) k/uL Monocytes # (0-1.0) k/uL Eosinophils # (0-0.7) k/uL Basophils # (0-0.2) k/uL PT (10.0-12.5) sec INR (<1.2) APTT (22.0-30.0) sec Sodium (137-145) mmol/L Potassium (3.5-5.1) mmol/L Chloride (98-107) mmol/L Carbon Dioxide (22-30) mmol/L Anion Gap mmol/L BUN (7-17) mg/dL Creatinine (0.52-1.04) mg/dL Est GFR (CKD-EPI)AfAm (>60 ml/min/1.73 sqM) Est GFR (CKD-EPI)NonAf (>60 ml/min/1.73 sqM) Glucose (74-99) mg/dL Plasma Lactic Acid [place] 0.7 (0.7-2.0) mmol/L Calcium (8.4-10.2) mg/dL Total Bilirubin (0.2-1.3) mg/dL AST (14-36) U/L ALT (4-34) U/L Alkaline Phosphatase (38-126) U/L Total Protein (6.3-8.2) g/dL Albumin (3.5-5.0) g/dL Amylase (30-110) U/L Lipase (23-300) U/L Urine Color Light Yellow Urine Appearance Clear (Clear) Urine pH 5.5 (5.0-8.0) Ur Specific [place] 1.025 (1.001-1.035) Urine Protein Negative (Negative) Urine Glucose (UA) Negative (Negative) Urine Ketones Negative (Negative) Urine Blood Negative (Negative) Urine Nitrite Negative (Negative) Urine Bilirubin Negative (Negative) Urine Urobilinogen <2.0 (<2.0) mg/dL Ur Leukocyte Esterase Negative (Negative) Urine HCG, Qual Not Detected (Not Detectd) Disposition Clinical Impression: Left lower quadrant abdominal pain, Ovarian cyst Condition: Stable Instructions (If sedation given, give patient instructions): Abdominal Pain (ED) Additional Instructions: Every disease is a spectrum and a small chance still exists that a serious condition could develop, for this reason, please monitor yourself closely for new, changing or worsening symptoms, sudden worsening of pain, symptoms that persist beyond 48 hours, fever, inability to tolerate/keep down fluids or your medications, inability to follow up with outpatient providers as instructed and should you experience these symptoms or should you have any further concerns for your wellbeing please return to the ED or call 911 immediately. Your pain can be treated with ibuprofen and acetaminophen. You can take up to 400-600 mg of ibuprofen (Advil, Motrin) 3 times daily (every 8 hours) but can also use lower doses if this relieves your pain. Some people prefer naproxen (Aleve, Naprosyn) which can be taken in doses of 500 mg up to twice a day. Do not take both of these medicines together, and do not combine either with ketorolac (Toradol), meloxicam (Mobic), or indomethacin (Tivorbex). Some people can develop stomach discomfort with higher doses of either ibuprofen or naproxen, if this develops decrease your dose or stop taking it. If you need to take this dose daily for more than a week, please schedule an appointment for re-evaluation with your PCP. Please take these medications with food. You can take up to 1000 mg of acetaminophen (Tylenol) every 6 hours. Be careful as this is included in some medicines like Nyquil, [place], Percocet, Vicodin, STANBACK, Goody's Powders, and Excedrin. You can also use lidocaine patches for topical pain. You can purchase 4% patches over the counter at most drug stores. These can be helpful for pain from your muscles or bones. PLEASE call your primary care physician as soon as possible to arrange / discuss plan for followup appointment. Appointment in the next 1-3 days is strongly encouraged if possible. PLEASE let us know here before you leave if there is anything further we can do to be of any assistance. Take care and feel Better! Referrals: Akin Payne, DO [Primary Care Provider] - 1-2 days
[2024-10-05 02:57] LABS: INR 0.9 (<1.2); Partial Thromboplastin Time 23.4 sec (22.0-30.0); Prothrombin Time 10.1 sec (10.0-12.5)
[2024-10-05 03:01] LABS: Basophils # (A) 0.1 k/uL (0-0.2); Basophils % (A) 1 %; Eosinophils # (A) 0.2 k/uL (0-0.7); Eosinophils % (A) 1 %; HCT 35.4 % (34.0-46.0); HGB 11.4 gm/dL (11.4-16.0); Lymphocytes % (A) 28 %; MCHC 32.2 g/dL (31.0-37.0); MCV 77.6 fL (80.0-100.0); Mean Platelet Volume 8.7; Monocytes # (A) 0.7 k/uL (0-1.0); Monocytes % (A) 5 %; Neutrophils # (A) 9.4 k/uL (1.3-7.7); Neutrophils % (A) 64 %; Platelet Count 396 k/uL (150-450); RBC 4.56 m/uL (3.80-5.40); RDW 14.1 % (11.5-15.5); WBC 14.6 k/uL (3.8-10.6)
[2024-10-05 03:04] LABS: ALT 20 U/L (4-34); AST 21 U/L (14-36); African American GFR (CKD) >90 (>60 ml/min/1.73 sqM); Albumin 4.3 g/dL (3.5-5.0); Alkaline Phosphatase 90 U/L (38-126); Amylase 61 U/L (30-110); Anion Gap 10 mmol/L; Blood Urea Nitrogen 12 mg/dL (7-17); Calcium 9.5 mg/dL (8.4-10.2); Carbon Dioxide 24 mmol/L (22-30); Chloride 101 mmol/L (98-107); Glucose 91 mg/dL (74-99); Lipase 155 U/L (23-300); Non-African American GFR(CKD) >90 (>60 ml/min/1.73 sqM); Potassium 3.8 mmol/L (3.5-5.1); Sodium 135 mmol/L (137-145); Total Bilirubin 0.4 mg/dL (0.2-1.3); Total Protein 7.5 g/dL (6.3-8.2)
[2024-10-05 03:48] LABS: Appearance,Urine Clear (Clear); Bilirubin,Urine Negative (Negative); Blood,Urine Negative (Negative); Color,Urine Light Yellow; Glucose,Urine (UA) Negative (Negative); Ketones,Urine Negative (Negative); Leukocyte Esterase,Urine Negative (Negative); Nitrite,Urine Negative (Negative); PH, Urine 5.5 (5.0-8.0); Protein,Urine Negative (Negative); Specific Gravity,Urine 1.025 (1.001-1.035); Urobilinogen,Urine <2.0 mg/dL (<2.0)
[2024-10-05 04:02] VITALS: RESP 18
--- NOTE | 2024-10-05 04:41 | US ---
EXAM: US Retroperitoneal Limited, Renal CLINICAL HISTORY: ITS.REASON US Reason: sharp LLQ pain, hx kidney stone ovarian vs renal TECHNIQUE: Real-time limited ultrasound of the retroperitoneum with image documentation. COMPARISON: No relevant prior studies available. FINDINGS: Right kidney: No stones. No solid mass. No hydronephrosis. Left kidney: No stones. No solid mass. No hydronephrosis. Bladder: Unremarkable. IMPRESSION: Normal retroperitoneal ultrasound.
--- NOTE | 2024-10-05 04:42 | US ---
EXAM: US Pelvis Transvaginal CLINICAL HISTORY: ITS.REASON US Reason: sharp LLQ pain, torsion vs rupt. cyst? TECHNIQUE: Real-time transvaginal pelvic ultrasound with image documentation. Transvaginal imaging was used for better evaluation of the endometrium and adnexa. COMPARISON: No relevant prior studies available. FINDINGS: Uterus: 8.4 x 4.6 x 5.6 cm Endometrial Stripe: 1.4 cm Right Ovary: 3.1 x 2.5 x 1.4 cm Left Ovary: 4.2 x 3.9 x 3.3 cm 1. Uterus: Anteverted IUD possibly located within lower uterine segment- difficult to visualize 2. Endometrium: wnl 3. Right Ovary: wnl 4. Left Ovary: Small cyst= 2.4 x 1.9 x 2.3 Spectral, color and waveform doppler imaging shows good arterial and venous flow within the ovaries; there is no evidence for ovarian torsion. 5. Bilateral Adnexa: wnl 6. Posterior cul-de-sac: Scant amount of free fluid IMPRESSION: 1. Uterus: Anteverted IUD possibly located within lower uterine segment- difficult to visualize 2. Endometrium: wnl 3. Right Ovary: wnl 4. Left Ovary: Small cyst= 2.4 x 1.9 x 2.3 Spectral, color and waveform doppler imaging shows good arterial and venous flow within the ovaries; there is no evidence for ovarian torsion. 5. Bilateral Adnexa: wnl 6. Posterior cul-de-sac: Scant amount of free fluid
[2024-10-05 05:23] VITALS: BP 122/76; PULSE 82
== END 2024-10-05 05:23 ==
LOC: EC 01:23
DX: R10.32 Left lower quadrant pain (principal); N83.202 Unspecified ovarian cyst, left side
CPT/HCPCS: 36415; 76770; 76830; 80053; 81003; 81025; 82150; 83605; 83690; 85025; 85610; 85730; 99285

== ENCOUNTER → 2024-10-27 | Outpatient (CLI) | payer MEDICAID, OTHER | END | disposition home or self-care (01) | LOC: LABWHC1 11:30 | PROVIDERS: ATTEND Obstetrics & Gynecology | DX: N92.5 Other specified irregular menstruation (principal) | CPT/HCPCS: 36415; 84702 ==

== ENCOUNTER 2025-02-10 19:40 | Emergency (ER) | payer MEDICAID, OTHER ==
[2025-02-10 20:02] VITALS: RESP 16
--- NOTE | 2025-02-10 20:04 | ED ---
Female Urogenital HPI - General Source: patient, RN notes reviewed Mode of arrival: ambulatory Limitations: no limitations <Felisha Vang - Last Filed: 02/10/25 20:03> - General Source: patient, RN notes reviewed <Misty Jacob - Last Filed: 02/10/25 23:48> - General Chief complaint: Urogenital Stated complaint: Back pain Time Seen by Provider: 02/10/25 20:03 - History of Present Illness Initial comments: Quick note: 24-year-old female presented the ER for evaluation of left flank pain. Patient reports a history of kidney stones and states this pain feels similar. Over the past couple of weeks she has have intermittent left flank pain. She states pain is now consistent. She also was endorsing a pubic pressure sensation. Denies any fevers or chills. (Felisha Vang) 24-year-old female with history of kidney stones presenting for left flank pain x 2 weeks that is becoming worse in severity and more constant. Also reports suprapubic pressure. Denies hematuria, dysuria, urinary frequency, urinary urgency, fevers, chills. Reports pain at about a 5 right now. (Misty Jacob) - Related Data Home Medications Medication Instructions Recorded Confirmed Sertraline [Zoloft] 50 mg PO DAILY 03/20/23 03/20/23 Previous Rx's Medication Instructions Recorded Ibuprofen 600 mg PO Q6H PRN #36 tab 06/15/21 Famotidine 20 mg PO BID 7 Days #14 tablet 03/20/23 Sucralfate [Carafate] 1 gm PO BID 7 Days #14 tablet 03/20/23 HYDROcodone/APAP 7.5-325MG [[place] 1 tab PO Q6HR PRN 3 Days #12 tab 06/10/23 7.5-325] Ketorolac [Toradol] 10 mg PO Q6HR PRN #15 tab 06/10/23 Ondansetron Odt [Zofran Odt] 4 mg PO Q8HR PRN #15 tab 06/10/23 Tamsulosin [Flomax] 0.4 mg PO DAILY 5 Days #5 cap 06/10/23 Allergies Allergy/AdvReac Type Severity Reaction Status Date / Time No Known Allergies Allergy Verified 10/05/24 01:29 Review of Systems ROS Other: All systems not noted in ROS Statement are negative. <SalinasrebekahFelisha - Last Filed: 02/10/25 20:03> ROS Other: All systems not noted in ROS Statement are negative. <Misty Jacob - Last Filed: 02/10/25 23:48> ROS Statement: Those systems with pertinent positive or pertinent negative responses have been documented in the HPI. Past Medical History Past Medical History: No Reported History Additional Past Medical History / Comment(s): Kidney stones. 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 Past Anesthesia/Blood Transfusion Reactions: No Reported Reaction Past Psychological History: Anxiety Smoking Status: Never smoker Past Alcohol Use History: None Reported Past Drug Use History: None Reported - Past Family History Mother Family Medical History: No Reported History Father Family Medical History: No Reported History Additional Family Medical History / Comment(s): Paternal grandmother had breast cancer. Paternal aunt had PCOS. <SalinasrebekahFelisha - Last Filed: 02/10/25 20:03> General Exam Limitations: no limitations <GenefroylanFelisha - Last Filed: 02/10/25 20:03> General appearance: alert, in no apparent distress Head exam: Present: atraumatic, normocephalic, normal inspection Eye exam: Present: normal appearance, PERRL, EOMI. Absent: scleral icterus, conjunctival injection, periorbital swelling ENT exam: Present: normal exam, mucous membranes moist GI/Abdominal exam: Present: soft, normal bowel sounds. Absent: distended, tenderness, guarding, rebound, rigid Back exam: Present: normal inspection. Absent: tenderness, CVA tenderness (R), CVA tenderness (L) Neurological exam: Present: alert, oriented X3 Psychiatric exam: Present: normal affect, normal mood Skin exam: Present: warm, dry, intact, normal color. Absent: rash <Misty Jacob - Last Filed: 02/10/25 23:48> - General Exam Comments Initial Comments: Visual Physical Exam Vital signs reviewed General: Well-appearing, nontoxic, no acute distress. Head: Normocephalic, atraumatic Eyes: PERRLA, EOMI ENT: Airway patent Chest: Nonlabored breathing Skin: No visual rash, normal skin tone Neuro: Alert and oriented 3 Musculoskeletal: No gross abnormalities (Felisha Vang) Course Vital Signs 02/10/25 19:59 Temperature 98.9 F Pulse Rate 92 Respiratory 16 Rate Blood Pressure 131/84 O2 Sat by Pulse 99 Oximetry Medical Decision Making <Felisha Vang - Last Filed: 02/10/25 20:03> - Lab Data Result diagrams: 02/10/25 21:24 02/10/25 21:24 <Misty Jacob - Last Filed: 02/10/25 23:48> - Medical Decision Making I performed the quick note portion of this chart. Electronically signed by Felisha Vang PA-C (Felisha Vang) Was pt. sent in by a medical professional or institution ([facility], CONSTRUCTION IRONWORKER HELPER, urgent care, hospital, or skilled nursing...) When possible be specific @ -No Did you speak to anyone other than the patient for history (EMS, parent, family, police, friend...)? What history was obtained from this source @ -No Did you review nursing and triage notes (agree or disagree)? Why? @ -I reviewed and agree with nursing and triage notes Were old charts reviewed (outside hosp., previous admission, EMS record, old EKG, old radiological studies, urgent care reports/EKG's, skilled nursing records)? Report findings @ -No old charts were reviewed Differential Diagnosis (chest pain, altered mental status, abdominal pain women, abdominal pain men, vaginal bleeding, weakness, fever, dyspnea, syncope, headache, dizziness, GI bleed, back pain, seizure, CVA, palpatations, mental health, musculoskeletal)? @ -Differential Abdominal Pain Women: Appendicitis, Cholecystitis, diverticulosis, ischemic bowel, pancreatitis, hepatitis, UTI, gastroenteritis, AAA, incarcerated hernia, bowel obstruction, constipation, inflammatory bowel, hepatitis, peptic ulcer disease, splenic infarction, perforated viscus, vulvitis, ovarian torsion, PID, kidney stone, placenta abruption, this is not meant to be an all-inclusive list EKG interpreted by me (3pts min.). @ -None X-rays interpreted by me (1pt min.). @ -None done CT interpreted by me (1pt min.). @ -CT abdomen pelvis reveals nonobstructing bilateral renal stones otherwise no acute process U/S interpreted by me (1pt. min.). @ -None done What testing was considered but not performed or refused? (CT, X-rays, U/S, labs)? Why? @ -None What meds were considered but not given or refused? Why? @ -None Did you discuss the management of the patient with other professionals (professionals i.e. , PA, CONSTRUCTION IRONWORKER HELPER, lab, RT, psych nurse, social services designee, recreational leader, teacher, forest fire officer, case loader operator)? Give summary @ -No Was smoking cessation discussed for >3mins.? @ -No Was critical care preformed (if so, how long)? @ -No Were there social determinants of health that impacted care today? How? (Homelessness, low income, unemployed, alcoholism, drug addiction, transportation, low edu. Level, literacy, decrease access to med. care, retirement, rehab)? @ -No Was there de-escalation of care discussed even if they declined (Discuss DNR or withdrawal of care, Hospice)? DNR status @ -No What co-morbidities impacted this encounter? (DM, HTN, Smoking, COPD, CAD, Cancer, CVA, ARF, Chemo, Hep., AIDS, mental health diagnosis, sleep apnea, morbid obesity)? @ -None Was patient admitted / discharged? Hospital course, mention meds given and route, prescriptions, significant lab abnormalities, going to OR and other per tinent info. @ - discharge. 24-year-old female presenting for left flank pain. Patient is afebrile with no CVA tenderness. Provided with IV fluids and Toradol for supportive care. Laboratory studies remarkable for leukocytosis of 15, otherwise unremarkable. No lactic acidosis. Urinalysis remarkable for 18 red blood cells, negative for white blood cells. Urine negative. CT abdomen pelvis reveals nonobstructing bilateral renal stones otherwise no acute process. Upon reevaluation, patient reports significant improvement of symptoms. Patient can be safely discharged home with close outpatient follow-up and strict return precautions. Case was discussed with my ED attending Dr. Elam. Undiagnosed new problem with uncertain prognosis? @ -No Drug Therapy requiring intensive monitoring for toxicity (Heparin, Nitro, Insulin, Cardizem)? @ -No Were any procedures done? @ -No Diagnosis/symptom? @ -Left flank pain Acute, or Chronic, or Acute on Chronic? @ -Acute Uncomplicated (without systemic symptoms) or Complicated (systemic symptoms)? @ -Uncomplicated Side effects of treatment? @ -No Exacerbation, Progression, or Severe Exacerbation? @ -No Poses a threat to life or bodily function? How? (Chest pain, [place], AL, pneumonia, PE, COPD, DKA, ARF, appy, cholecystitis, CVA, Diverticulitis, Homicidal, Suicidal, threat to staff... and all critical care pts) @ -Unlikely (Misty Jacob) - Lab Data Lab Results 02/10/25 02/10/25 02/10/25 Range/Units 21:00 21:00 21:24 WBC 15.36 H (4.50-10.00) 10*3/uL RBC 5.04 (4.10-5.20) 10*6/uL Hgb 12.3 (12.0-15.0) g/dL Hct 38.0 (37.2-46.3) % MCV 75.4 L (80.0-97.0) fL MCH 24.4 L (27.0-32.0) pg MCHC 32.4 (32.0-37.0) g/dL Plt Count 321 (140-440) 10*3/uL MPV 9.7 (9.5-12.2) fL Immature Gran % (Auto) 0.5 % Neutrophils % 59.2 % Lymphocytes % 32.5 % Monocytes % 6.0 % Eosinophils % 1.2 % Basophils % 0.6 % Immature Gran # 0.07 H (0.00-0.04) 10*3/uL Neutrophils # 9.10 H (1.80-7.70) 10*3/uL Lymphocytes # 4.99 (0.90-5.00) 10*3/uL Monocytes # 0.92 (0.20-1.00) 10*3/uL Eosinophils # 0.19 (0.04-0.35) 10*3/uL Basophils # 0.09 (0.00-0.10) 10*3/uL Manual Slide Review Performed Toxic Vacuolation Present Large Platelets Present Polychromasia Present Sodium (137-145) mmol/L Potassium (3.5-5.1) mmol/L Chloride (98-107) mmol/L Carbon Dioxide (22-30) mmol/L Anion Gap mmol/L BUN (7-17) mg/dL Creatinine (0.52-1.04) mg/dL Est GFR (CKD-EPI)AfAm (>60 ml/min/1.73 sqM) Est GFR (CKD-EPI)NonAf (>60 ml/min/1.73 sqM) Glucose (74-99) mg/dL Plasma Lactic Acid Wilder (0.7-2.0) mmol/L Calcium (8.4-10.2) mg/dL Total Bilirubin (0.2-1.3) mg/dL AST (14-36) U/L ALT (4-34) U/L Alkaline Phosphatase (38-126) U/L Total Protein (6.3-8.2) g/dL Albumin (3.5-5.0) g/dL Amylase (30-110) U/L Lipase (23-300) U/L Urine Color Light Yellow Urine Appearance Clear (Clear) Urine pH 5.5 (5.0-8.0) Ur Specific [place] 1.024 (1.001-1.035) Urine Protein Negative (Negative) Urine Glucose (UA) Negative (Negative) Urine Ketones Negative (Negative) Urine Blood Small H (Negative) Urine Nitrite Negative (Negative) Urine Bilirubin Negative (Negative) Urine Urobilinogen 2.0 (<2.0) mg/dL Ur Leukocyte Esterase Negative (Negative) Urine RBC 18 H (0-5) /hpf Urine WBC 1 (0-5) /hpf Ur Squamous Epith Cells 3 (0-4) /hpf Urine Bacteria Rare H (None) /hpf Urine Mucus Rare H (None) /hpf Urine HCG, Qual Not Detected (Not Detectd) 02/10/25 02/10/25 Range/Units 21:24 21:24 WBC (4.50-10.00) 10*3/uL RBC (4.10-5.20) 10*6/uL Hgb (12.0-15.0) g/dL Hct (37.2-46.3) % MCV (80.0-97.0) fL MCH (27.0-32.0) pg MCHC (32.0-37.0) g/dL Plt Count (140-440) 10*3/uL MPV (9.5-12.2) fL Immature Gran % (Auto) % Neutrophils % % Lymphocytes % % Monocytes % % Eosinophils % % Basophils % % Immature Gran # (0.00-0.04) 10*3/uL Neutrophils # (1.80-7.70) 10*3/uL Lymphocytes # (0.90-5.00) 10*3/uL Monocytes # (0.20-1.00) 10*3/uL Eosinophils # (0.04-0.35) 10*3/uL Basophils # (0.00-0.10) 10*3/uL Manual Slide Review Toxic Vacuolation Large Platelets Polychromasia Sodium 139 (137-145) mmol/L Potassium 4.0 (3.5-5.1) mmol/L Chloride 105 (98-107) mmol/L Carbon Dioxide 22 (22-30) mmol/L Anion Gap 12 mmol/L BUN 16 (7-17) mg/dL Creatinine 0.63 (0.52-1.04) mg/dL Est GFR (CKD-EPI)AfAm >90 (>60 ml/min/1.73 sqM) Est GFR (CKD-EPI)NonAf >90 (>60 ml/min/1.73 sqM) Glucose 94 (74-99) mg/dL Plasma Lactic Acid Wilder 0.9 (0.7-2.0) mmol/L Calcium 9.3 (8.4-10.2) mg/dL Total Bilirubin 0.6 (0.2-1.3) mg/dL AST 28 (14-36) U/L ALT 24 (4-34) U/L Alkaline Phosphatase 100 (38-126) U/L Total Protein 8.2 (6.3-8.2) g/dL Albumin 4.8 (3.5-5.0) g/dL Amylase 60 (30-110) U/L Lipase 106 (23-300) U/L Urine Color Urine Appearance (Clear) Urine pH (5.0-8.0) Ur Specific [place] (1.001-1.035) Urine Protein (Negative) Urine Glucose (UA) (Negative) Urine Ketones (Negative) Urine Blood (Negative) Urine Nitrite (Negative) Urine Bilirubin (Negative) Urine Urobilinogen (<2.0) mg/dL Ur Leukocyte Esterase (Negative) Urine RBC (0-5) /hpf Urine WBC (0-5) /hpf Ur Squamous Epith Cells (0-4) /hpf Urine Bacteria (None) /hpf Urine Mucus (None) /hpf Urine HCG, Qual (Not Detectd) Disposition <Felisha Vang - Last Filed: 02/10/25 20:03> Is patient prescribed a controlled substance at d/c from ED?: No Time of Disposition: 23:47 <Misty Jacob - Last Filed: 02/10/25 23:48> Clinical Impression: Left flank pain Disposition: HOME SELF-CARE Condition: Stable Instructions (If sedation given, give patient instructions): Flank Pain (ED) Additional Instructions: Please return to the Emergency Department if symptoms worsen or any other concerns. Referrals: Akin Payne DO [Primary Care Provider] - 1-2 days
[2025-02-10 21:12] LABS: Appearance,Urine Clear (Clear); Bacteria,Urine Rare /hpf; Bilirubin,Urine Negative (Negative); Blood,Urine Small (Negative); Color,Urine Light Yellow; Glucose,Urine (UA) Negative (Negative); Ketones,Urine Negative (Negative); Leukocyte Esterase,Urine Negative (Negative); Mucus,Urine Rare /hpf; Nitrite,Urine Negative (Negative); PH, Urine 5.5 (5.0-8.0); Protein,Urine Negative (Negative); RBC,Urine 18 /hpf (0-5); Specific Gravity,Urine 1.024 (1.001-1.035); Squamous Epithelial Cell,Urine 3 /hpf (0-4); WBC,Urine 1 /hpf (0-5)
[2025-02-10] MEDS: SODIUM CHLORIDE 0.9% 1,000 ML IV STA (21:26)
[2025-02-10] MEDS: KETOROLAC 15 MG/ML 1 ML VIAL IVP STA (21:28)
[2025-02-10 21:32] LABS: Basophils # (A) 0.09 10*3/uL (0.00-0.10); Basophils % (A) 0.6 %; Eosinophils # (A) 0.19 10*3/uL (0.04-0.35); Eosinophils % (A) 1.2 %; HGB 12.3 g/dL (12.0-15.0); Lymphocytes # (A) 4.99 10*3/uL (0.90-5.00); Lymphocytes % (A) 32.5 %; MCH 24.4 pg (27.0-32.0); MCHC 32.4 g/dL (32.0-37.0); MCV 75.4 fL (80.0-97.0); Mean Platelet Volume 9.7 fL (9.5-12.2); Monocytes # (A) 0.92 10*3/uL (0.20-1.00); Neutrophils % (A) 59.2 %; Platelet Count 321 10*3/uL (140-440); RBC 5.04 10*6/uL (4.10-5.20); WBC 15.36 10*3/uL (4.50-10.00)
[2025-02-10 21:45] LABS: ALT 24 U/L (4-34); AST 28 U/L (14-36); African American GFR (CKD) >90 (>60 ml/min/1.73 sqM); Albumin 4.8 g/dL (3.5-5.0); Alkaline Phosphatase 100 U/L (38-126); Amylase 60 U/L (30-110); Anion Gap 12 mmol/L; Blood Urea Nitrogen 16 mg/dL (7-17); Calcium 9.3 mg/dL (8.4-10.2); Carbon Dioxide 22 mmol/L (22-30); Chloride 105 mmol/L (98-107); Glucose 94 mg/dL (74-99); Lipase 106 U/L (23-300); Non-African American GFR(CKD) >90 (>60 ml/min/1.73 sqM); Sodium 139 mmol/L (137-145); Total Bilirubin 0.6 mg/dL (0.2-1.3); Total Protein 8.2 g/dL (6.3-8.2)
[2025-02-10 22:00] LABS: Large Platelets Present
[2025-02-10 22:01] LABS: Polychromasia Present; Toxic Vacuolation Present
--- NOTE | 2025-02-10 22:42 | CT ---
EXAMINATION TYPE: CT abdomen pelvis wo con DATE OF EXAM: 02/10/2025 9:50 PM COMPARISON: 06/10/2023 Studies without oral contrast limits bowel evaluation CLINICAL INDICATION: Female, 24 years old with history of left flank pain, left flank pain TECHNIQUE: Axial images were obtained from above the diaphragm to the pubic rami in the axial plane a t 5 mm thick sections. Reconstructed images are reviewed on the computer in the coronal plane. CONTRAST: mL of . Study performed without Oral Contrast DLP: 1381.4 mGycm, Automated exposure control for dose reduction was used. FINDINGS: Limited CT sections are obtained the lung bases. The lung bases are clear. CT ABDOMEN: Liver: Normal Spleen: Normal Pancreas: Normal Adrenal glands: The adrenal glands are normal. Gallbladder: Normal Kidneys: No masses are evident. No hydronephrosis is present. No cysts are present. Bilateral [place] nonobstructing renal stones are present. Aorta: Normal Inferior vena cava: Normal. CT PELVIS: Loops of bowel within the abdomen and pelvis are normal. There are loops of bowel which are incom pletely distended or lack oral contrast limiting their evaluation. Appendix: Normal as visualized. Urinary bladder: Decompressed limiting evaluation Genitourinary structures: Uterus is unremarkable. Adnexa appear normal. Osseous structures: No suspicious lytic or sclerotic lesions. IMPRESSION: 1. Nonobstructing bilateral renal stones. [facility], , 02/10/2025 10:40 PM
[2025-02-10 23:58] VITALS: BP 122/78; PULSE 86; TEMP 98
== END 2025-02-10 23:58 | disposition home or self-care (01) ==
LOC: EC 19:40
DX: R10.32 Left lower quadrant pain (principal)
CPT/HCPCS: 36415; 80053; 82150; 83605; 83690; 85025; 81001; 81025; 74176; 99284; 96374; 96361 ×2; J1885